=== PATIENT | female | born 1955 | race African-American/Black ===

== ENCOUNTER 2019-06-26 18:06 | Emergency (ER) | payer MEDICARE, OTHER ==
[~2019-06-26] VITALS: Ht 165.1 cm; Wt 75.7 kg
--- NOTE | 2019-06-26 18:46 | NUR ---
ED Nurse Note: pt also noted to have lower etremity edema from thighs to ankles. pt relates this started with the abdominal distension.
--- NOTE | 2019-06-26 18:49 | NUR ---
ED Nurse Note: pt arrives from home ambulatory with c/o abd distension. relates that she has been a brainerd pt until this past week and was been treated for "fluid in lungs and hypertension" pt states they have not told her a diagnosis for any of her symptoms. pt with largely distended abd noted with mild dyspnea with exertion. pt with iv and labs obtained voied urine sample sent. pt tolerates well. report to primary rn Florentin Martin assumes care
[2019-06-26] MEDS ORDERED: FUROSEMIDE40 MG ORAL (19:02)
[2019-06-26 19:13] VITALS: BP 156/100
--- NOTE | 2019-06-26 19:33 | Emergency Room Report ---
History of Present Illness General Chief Complaint: General Complaint Source: Patient Present Illness HPI Disclaimer: Please note that this report is being documented using Smart[employer] systemON technology. This can lead to erroneous entry secondary to incorrect interpretation by the dictating instrument. HPI: 64-year-old female with a history of hypertension presents for evaluation of abdominal distention. Patient states over the past few months she has been having intermittent episodes of abdominal distention which usually resolved by taking [id number] Gas-X and other such products. She reports intermittent pain but none currently. Denies nausea, vomiting or diarrhea. She has been having regular bowel movements though sometimes does complain of constipation. She denies any fevers, chills, chest pain, shortness of breath. No history of liver disease or ascites. Denies history of kidney issues. Denies drugs or alcohol use. Last bowel movement was on arrival here at the emergency department states it was normal. PMH: Hypertension PSH: Tubal ligation bilaterally, rectovesicular fistula Allergies: Erythromycin, lisinopril Social Hx:, Denies drug or alcohol use Allergies: Coded Allergies: LISINOPRIL (Verified Allergy, Unknown, 06/26/19) Uncoded Allergies: ERYTHROMYCIN (Allergy, Unknown, 06/26/19) Patient History Now: No Nursing Documentation-PMH Hx Cardiac Problems: Yes - "fluid in lungs" Hx Hypertension: Yes Review of Systems All Other Systems: negative except mentioned in HPI Physical Exam Vital Signs Date Time Temp Pulse Resp B/P (MAP) Pulse Ox O2 Delivery O2 Flow Rate FiO2 06/26/19 18:12 98.4 117 19 156/100 (118) 92 Room Air General: Awake and alert, no acute distress HEENT: NC/AT. EOMI. sclera are icteric bilaterally. Cardiovascular: Tachycardic. S1 and S2 normal. No murmur appreciated Resp: Normal work of breathing. No cough, wheezing or crackles appreciated Abdomen: Abdomen is soft, distended, nontender, no fluid wave Skin: Intact. No abrasions, laceration or rash over the exposed skin MSK: Normal tone and bulk. Moving all extremities. No obvious deformity. Neuro: Awake and alert. Mentating appropriately. Procedures Ultrasound Ultrasound : Consent: Verbal Ultrasound: abnormal pelvis - Positive for free intra-abdominal fluid consistent with ascites Patient Tolerated: Well Complications: None Medical Decision Making Diagnostic Impression: Primary Impression: Ascites Additional Impressions: Total bilirubin, elevated Pleural effusion, left ER Course 64-year-old female presents for evaluation of abdominal distention without abdominal pain. Symptoms have been intermittent for several weeks. She has scleral icterus and denies history of known liver disease. We will start broad metabolic, infectious work-up. Will obtain x-ray to rule out obstruction and further imaging as needed. Bedside ultrasound shows free fluid in the abdomen consistent with ascites. The patient is tachycardic but she states this is her baseline. She has no shortness of breath or discomfort at this time. Laboratory Tests Test 06/26/19 18:40 White Blood Count 5.5 K/UL (4.8-10.8) Red Blood Count 4.66 M/UL (4.20-5.40) Hemoglobin 12.4 G/DL (12.0-16.0) Hematocrit 38.5 % (37.0-47.0) Mean Corpuscular Volume 83 FL (80-99) Mean Corpuscular Hemoglobin 26.7 PG (27.0-31.0) L Mean Corpuscular Hemoglobin Concent 32.3 G/DL (32.0-36.0) Red Cell Distribution Width 14.7 % (11.6-14.8) Platelet Count 288 K/UL (150-450) Mean Platelet Volume 5.5 FL (6.5-10.1) L Neutrophils (%) (Auto) 59.0 % (45.0-75.0) Lymphocytes (%) (Auto) 26.9 % (20.0-45.0) Monocytes (%) (Auto) 10.5 % (1.0-10.0) H Eosinophils (%) (Auto) 2.3 % (0.0-3.0) Basophils (%) (Auto) 1.4 % (0.0-2.0) Sodium Level 143 MMOL/L (136-145) Potassium Level 4.0 MMOL/L (3.5-5.1) Chloride Level 107 MMOL/L (98-107) Carbon Dioxide Level 24 MMOL/L (21-32) Anion Gap 12 mmol/L (5-15) Blood Urea Nitrogen 15 mg/dL (7-18) Creatinine 1.0 MG/DL (0.55-1.30) Estimate Glomerular Filtration Rate 55.7 mL/min (>60) Glucose Level 96 MG/DL (74-106) Calcium Level 8.8 MG/DL (8.5-10.1) Total Bilirubin 2.1 MG/DL (0.2-1.0) H Direct Bilirubin 0.3 MG/DL (0.0-0.3) Aspartate Amino Transferase (AST) 29 U/L (15-37) Alanine Aminotransferase (ALT) 13 U/L (12-78) Alkaline Phosphatase 136 U/L (46-116) H Total Protein 7.6 G/DL (6.4-8.2) Albumin 3.1 G/DL (3.4-5.0) L Globulin 4.5 g/dL Albumin/Globulin Ratio 0.7 (1.0-2.7) L Lipase 121 U/L (73-393) Other X-Ray Diagnostic Results Other X-Ray Diagnostic Results : X-Ray ordered: Abdomen # of Views/Limited Vs Complete: 1 View Indication: Swelling EP Interpretation: Yes Interpretation: other - Left lower lobe effusion, paucity of gas Impression: Other - Nonspecific bowel gas pattern, left lower lobe effusion Electronically Signed by: Electronically signed by Dr. Ney Nunez Reevaluation Time: 20:39 Last Vital Signs Date Time Temp Pulse Resp B/P (MAP) Pulse Ox O2 Delivery O2 Flow Rate FiO2 06/26/19 18:52 117 19 Room Air 06/26/19 18:12 98.4 156/100 (118) 92 Reevaluation Impression Abdominal x-ray concerning for left lower lobe effusion and it is very difficult to interpret the abdominal findings though there is no obvious obstruction. Will send for a CT of the chest, abdomen and pelvis with IV contrast. Labs thus far show elevated total bilirubin With a normal direct bilirubin, elevated alk phos, otherwise within normal limits. No white count, no anemia, no shift 2200: Patient was unable to solid and tolerate CT scan of the torso as she became short of breath while lying flat. While sitting upright she has no respiratory distress or other complaints. She will require admission. Do not see indication for emergent paracentesis at this time. Will be transferred to [facility] per her health care plan Disposition: XFER SHT-TRM HOSP Condition: Stable Ney Nunez MD Jun 26, 2019 19:33
[2019-06-26 20:03] LABS: ANION GAP 12 mmol/L (5-15); BLOOD UREA NITROGEN 15 mg/dL (7-18); CALCIUM 8.8 MG/DL (8.5-10.1); CARBON DIOXIDE 24 MMOL/L (21-32); CHLORIDE 107 MMOL/L (98-107); SODIUM 143 MMOL/L (136-145)
[2019-06-26 20:09] LABS: BASOPHILS % (AUTO) 1.4 % (0.0-2.0); EOSINOPHILS % (AUTO) 2.3 % (0.0-3.0); HEMATOCRIT 38.5 % (37.0-47.0); HEMOGLOBIN 12.4 G/DL (12.0-16.0); LYMPHOCYTES % (AUTO) 26.9 % (20.0-45.0); MEAN CORPUSCULAR VOLUME 83 FL (80-99); MONOCYTES % (AUTO) 10.5 % (1.0-10.0); PLATELET COUNT 288 K/UL (150-450); RED BLOOD COUNT 4.66 M/UL (4.20-5.40); RED CELL DISTRIBUTION WIDTH 14.7 % (11.6-14.8); WHITE BLOOD COUNT 5.5 K/UL (4.8-10.8)
[2019-06-26 20:15] LABS: ALANINE AMINOTRANSFERASE 13 U/L (12-78); ALBUMIN 3.1 G/DL (3.4-5.0); ALBUMIN/GLOBULIN RATIO 0.7 (1.0-2.7); ALKALINE PHOSPHATASE 136 U/L (46-116); ASPARTATE AMINO TRANSFERASE 29 U/L (15-37); BILIRUBIN,TOTAL 2.1 MG/DL (0.2-1.0)
[2019-06-26] MEDS ORDERED: Omnipaque-300 100ml vial INJ ONE (20:15)
--- NOTE | 2019-06-26 20:15 | NUR ---
ED Nurse Note: Pt to CT
[2019-06-26 20:17] LABS: BILIRUBIN,DIRECT 0.3 MG/DL (0.0-0.3)
[2019-06-26 21:15] VITALS: BP 145/82
--- NOTE | 2019-06-26 22:15 | NUR ---
ED Nurse Note: Pt unable to tolerate CT, ERMD did US at bedside, pt tolerated well
[2019-06-26 23:18] VITALS: BP 139/89
--- NOTE | 2019-06-27 00:05 | NUR ---
ED Nurse Note: Pt resting in bed, ocassionally using the bedside comode x5, VSS. continue to monitor
[2019-06-27 00:44] VITALS: BP 153/98
[2019-06-27 02:01] VITALS: BP 153/98
--- NOTE | 2019-06-27 02:01 | NUR ---
ER DISCHARGE NOTE: Patient is cleared to be discharged per ERMD, pt is aox4, on room air, with stable vital signs. pt was given dc and prescription instructions, pt was able to verbalize understanding, pt id band removed. pt is able to ambulate with steady gait. pt took all belongings. Pt taken by [facility] ambulance to [facility]
--- NOTE | 2019-06-27 14:05 | Diagnostic Imaging Report ---
Indication: Abdominal pain Technique: Supine view of the abdomen Comparison: none Findings: Evaluation is limited by body habitus. Grossly unremarkable bowel gas pattern. No masses or unusual calcifications. There may be some pleural and/or parenchymal disease at the left lung base. Impression: No definite acute process.
== END 2019-06-27 02:05 | disposition short-term general hospital (02) ==
LOC: EMR 21:10
DX: R18.8 Other ascites (principal); R79.89 Other specified abnormal findings of blood chemistry; J90 Pleural effusion, not elsewhere classified; R00.0 Tachycardia, unspecified; I10 Essential (primary) hypertension; Z88.8 Allergy status to other drugs, medicaments and biological substances
CPT/HCPCS: 36415; 74018; 80053; 82248; 83690; 83880; 84484; 85025; 93005; 96374; 99284; J1940